=== PATIENT | male | born 1990 | race Caucasian/White ===

== ENCOUNTER 2020-11-09 02:54 | Emergency (ER) | payer OTHER | END 2020-11-09 04:18 | LOC: EDH 02:54 | DX: R05 Cough (principal); Z20.828 Contact with and (suspected) exposure to other viral communicable diseases; I10 Essential (primary) hypertension; J45.909 Unspecified asthma, uncomplicated; Z88.1 Allergy status to other antibiotic agents; Z72.0 Tobacco use | CPT/HCPCS: 87426; 99283; U0003 ==